=== PATIENT | female | born 1995 | race Caucasian/White ===

== ENCOUNTER 2019-11-16 12:29 | Outpatient (CLI) | payer BC ==
--- NOTE | 2019-11-16 15:51 | XRAY Report ---
Reason: PAIN OF RT HAND Procedure Date: 11/16/2019 Accession Number: [id number] / [id number] Procedure: XR - Hand 2 View BILAT CPT Code: Final Report FULL RESULT: PROCEDURE: Hand 2 View BILAT INDICATIONS: PAIN OF RT HAND TECHNIQUE: 2 views of the hand(s) acquired. COMPARISON: None FINDINGS: Bones: No fractures or dislocations. No suspicious bony lesions. Soft tissues: No suspicious soft tissue calcifications. IMPRESSION: Source of pain involving the hands bilaterally is not seen. No prior trauma, no sign of erosive arthritis. Reviewed by: Chris Diaz MD on 11/16/2019 3:49 PM PDT Approved by: Chris Diaz MD on 11/16/2019 3:49 PM PDT Station ID: [id number]
== END 2019-11-16 12:30 | disposition home or self-care (01) ==
LOC: DI 12:29
PROVIDERS: ATTEND Internal Medicine
DX: M79.641 Pain in right hand (principal); Z86.79 Personal history of other diseases of the circulatory system
CPT/HCPCS: 36415; 85651; 86140

== ENCOUNTER 2019-11-16 13:01 | Outpatient (CLI) | payer BC | END 2019-11-16 13:02 | disposition home or self-care (01) | LOC: LAB 13:01 | PROVIDERS: ATTEND Internal Medicine | DX: M79.641 Pain in right hand (principal); Z86.79 Personal history of other diseases of the circulatory system | CPT/HCPCS: 36415; 85651; 86140 ==